=== PATIENT | male | born 1975 | race Caucasian/White ===

== ENCOUNTER 2016-02-28 19:56 | Emergency (ER) | payer OTHER | END 2016-02-28 19:57 | disposition home or self-care (01) | LOC: ER 19:56 | DX: R51 Headache (principal); I10 Essential (primary) hypertension; K21.9 Gastro-esophageal reflux disease without esophagitis; Z88.0 Allergy status to penicillin | CPT/HCPCS: 96374; 99284; J1200; J2765 ==